=== PATIENT | male | born 1980 | race Caucasian/White ===

== ENCOUNTER 2021-09-21 15:50 | Emergency (ER) | payer OTHER, BC ==
[2021-09-21 16:22] LABS: HEMOGLOBIN 17.1 gm/dl (14.0-17.5); RED BLOOD COUNT 5.36 M/UL (4.20-5.50); WHITE BLOOD COUNT 7.7 K/UL (4.5-11.0)
[2021-09-21 16:46] LABS: BUN/CREATININE RATIO 12 (0-10)
== END 2021-09-21 20:59 | disposition home or self-care (01) ==
LOC: ER1 15:50
PROVIDERS: Physician Assistant
DX: J18.9 Pneumonia, unspecified organism (principal)
CPT/HCPCS: 71045; 80053; 82550; 82553; 83874; 84484; 85025; 93005; 99284

== ENCOUNTER → 2021-10-01 | Outpatient (CLI) | payer OTHER, BC | LOC: HEART 5 14:05 | DX: J68.0 Bronchitis and pneumonitis due to chemicals, gases, fumes and vapors (principal) | CPT/HCPCS: 94010 ==